=== PATIENT | male | born 1960 | race African-American/Black ===

== ENCOUNTER 2018-11-02 11:09 | Inpatient (IN) ==
[2018-11-02] MEDS ORDERED: PANTOPRAZOLE 40 MG VIAL IV STA (11:35)
[2018-11-02] MEDS ORDERED: HYDROmorphone 2 MG/1 ML VIAL IV STA (11:35)
[2018-11-02] MEDS ORDERED: ALUM/MAG/SIMETH/LIDO VISC 1:1 30 ML BOTTLE PO STA (11:35)
[2018-11-02] MEDS ORDERED: SODIUM CHLORIDE 0.9% 500 ML IV STA (11:35)
[2018-11-02] MEDS ORDERED: ONDANSETRON 4 MG/2 ML VIAL IV STA (11:35)
[2018-11-02 12:40] LABS: Basophils % 0.4 % (0.0-0.8); Eosinophils % 0.8 % (0.00-10.9); Hematocrit 39.2 VOL% (42.0-52.0); Hemoglobin 13.4 GM/DL (14.0-18.0); Immature Granulocytes % 0.2 %; Immature Granulocytes Absolute 0.01 #; Lymphocytes # 0.9 10*3/uL (1.4-4.0); Lymphocytes % 18.5 % (21.2-54.2); Mean Corpuscular HGB Conc 34.2 GM/DL (32-36); Mean Corpuscular Hemoglobin 33 PG (27-34); Mean Corpuscular Volume 95.6 FL (87-102); Mean Platelet Volume 9.6 FL (9.6-12.0); Monocytes # 0.4 10*3/uL (0.11-0.8); Monocytes % 7.3 % (1.7-12.7); Neutrophils # 3.7 10*3/uL (1.4-7.4); Neutrophils % 72.8 % (38.7-73.9); Platelet Count 108 T/CUMM (130-400); Red Cell Distribution Width 12.8 % (9.3-17.3); White Blood Count 5.1 T/CUMM (4-12)
[2018-11-02 12:57] LABS: Ammonia 21 UMOL/L (11-32)
[2018-11-02 13:00] LABS: Bilirubin,Total 3.1 MG/DL (0.2-1.0); Calcium 9.1 MG/DL (8.5-10.1); Lactic Acid 1.5 MMOL/L (0.4-2.0); Osmolality,Calculated 266.2 MOS/KG (273-304); Potassium 3.6 MMOL/L (3.5-5.1); Total Protein 8.2 G/DL (6.4-8.3)
[2018-11-02 13:44] LABS: Apearance,Urine CLEAR (Clear); Bilirubin,Urine Negative (Negative); Blood, Urine Negative (Negative); Glucose,Urine (UA) Negative (Negative); Hyaline Casts,Urine 1 /LPF (0-3); Ketones,Urine Negative (Negative); Mucus,Urine Occasional /LPF (Occasional); Nitrite,Urine Negative (Negative); Protein,Urine Negative; RBC,Urine 1 /HPF (0-4); Squamous Epithelial Cell,Urine Occasional /HPF (0-10); Urine Color Amber (Yellow); WBC,Urine 2 /HPF (0-6)
[2018-11-02 14:31] LABS: Barbiturates Screen,Urine Negative (Negative); Benzodiazepines Screen,Urine Negative (Negative); Cannabinoid Screen,Urine Positive (Negative); Opiate Screen,Urine Negative (Negative); Phencyclidine Screen,Urine Negative (Negative)
[2018-11-02] MEDS ORDERED: NICOTINE 21 MG/24 HR PATCH TRANSDERM PRN (14:49)
[2018-11-02] MEDS ORDERED: ONDANSETRON 4 MG/2 ML VIAL IV PRN (14:49)
[2018-11-02] MEDS: SODIUM CHLORIDE 0.9% 1,000 ML IV SCH (17:09)
[2018-11-02] MEDS: LORazepam 2 MG/1 ML VIAL IV PRN (19:03)
[2018-11-02] MEDS: LATANOPROST 0.005% OPH SOLN 2.5 ML BOTTLE BOTH EYES SCH ×2 (21:35→21:38)
[2018-11-02] MEDS: PANTOPRAZOLE 40 MG VIAL IV SCH (21:35)
[2018-11-02] MEDS: DOXAZOSIN 4 MG TABLET PO SCH ×2 (21:35→21:38)
[2018-11-02 23:32] LABS: Hepatitis A Ab IgM Result Negative (Negative); Hepatitis B Core IgM Quant < 0.05 Index; Hepatitis B Core IgM Result Negative (Negative); Hepatitis B Surface Ag Quant 0.18 Index; Hepatitis B Surface Ag Result Negative (Negative); Hepatitis C Virus Ab Quant 0.14 Index; Hepatitis C Virus Ab Result Negative (Negative)
[2018-11-03] MEDS: LORazepam 2 MG/1 ML VIAL IV PRN ×2 (00:24→21:24)
[2018-11-03 05:58] LABS: INR 1.1; PT Patient Result 11.8 SECS
[2018-11-03 06:01] LABS: Basophils % 0.6 % (0.0-0.8); Eosinophils # 0.1 10*3/uL (0.0-0.87); Eosinophils % 4.1 % (0.00-10.9); Hematocrit 37.1 VOL% (42.0-52.0); Hemoglobin 12.6 GM/DL (14.0-18.0); Immature Granulocytes % 0.3 %; Immature Granulocytes Absolute 0.01 #; Lymphocytes # 1.2 10*3/uL (1.4-4.0); Lymphocytes % 33.7 % (21.2-54.2); Mean Corpuscular Hemoglobin 33 PG (27-34); Mean Corpuscular Volume 96.1 FL (87-102); Mean Platelet Volume 9.9 FL (9.6-12.0); Monocytes # 0.4 10*3/uL (0.11-0.8); Monocytes % 10.3 % (1.7-12.7); Neutrophils # 1.7 10*3/uL (1.4-7.4); Platelet Count 100 T/CUMM (130-400); Red Blood Count 3.86 MC/CUMM (3.8-5.5); Red Cell Distribution Width 12.6 % (9.3-17.3); White Blood Count 3.4 T/CUMM (4-12)
[2018-11-03 06:19] LABS: Albumin 3.2 G/DL (3.4-5.0); Bilirubin,Total 3.3 MG/DL (0.2-1.0); Calcium 8.4 MG/DL (8.5-10.1); Osmolality,Calculated 270.8 MOS/KG (273-304); Potassium 3.7 MMOL/L (3.5-5.1); Risk Ratio 2.06; Thyroid Stimulating Hormone 2.52 uIU/ml (0.358-3.74); Total Protein 6.7 G/DL (6.4-8.3); VLDL CHOLESTEROL 12.8 MG/DL
[2018-11-03 08:55] LABS: Hematocrit 39.4 VOL% (42.0-52.0); Hemoglobin 13.3 GM/DL (14.0-18.0)
[2018-11-03] MEDS: PANTOPRAZOLE 40 MG VIAL IV SCH ×2 (08:58→21:24)
[2018-11-03] MEDS ORDERED: PROPOFOL 200 MG/20 ML VIAL IV ONE (09:00)
[2018-11-03] MEDS ORDERED: LIDOCAINE 100 MG/5 ML SYRINGE ONE (09:00)
[2018-11-03] MEDS: MULTIVITAMIN (CENTRUM) TABLET PO SCH (11:46)
[2018-11-03] MEDS: FOLIC ACID 1 MG TABLET PO SCH (11:46)
[2018-11-03] MEDS: LISINOPRIL 2.5 MG TABLET PO SCH (11:46)
[2018-11-03] MEDS: THIAMINE 100 MG TABLET PO SCH (11:46)
[2018-11-03] MEDS: hydroCHLOROthiazide 12.5 MG CAPSULE PO SCH (11:46)
[2018-11-03] MEDS: SODIUM CHLORIDE 0.9% 1,000 ML IV SCH (15:12)
[2018-11-03] MEDS: DOXAZOSIN 4 MG TABLET PO SCH (21:24)
[2018-11-03] MEDS: LATANOPROST 0.005% OPH SOLN 2.5 ML BOTTLE BOTH EYES SCH (22:09)
[2018-11-04] MEDS: SODIUM CHLORIDE 0.9% 1,000 ML IV SCH ×2 (04:23→15:56)
[2018-11-04 05:35] LABS: Basophils % 0.5 % (0.0-0.8); Eosinophils # 0.2 10*3/uL (0.0-0.87); Eosinophils % 5.5 % (0.00-10.9); Hemoglobin 12.4 GM/DL (14.0-18.0); Immature Granulocytes % 0.5 %; Immature Granulocytes Absolute 0.02 #; Lymphocytes # 1.3 10*3/uL (1.4-4.0); Lymphocytes % 31.5 % (21.2-54.2); Mean Corpuscular HGB Conc 33.5 GM/DL (32-36); Mean Corpuscular Hemoglobin 33 PG (27-34); Mean Corpuscular Volume 97.4 FL (87-102); Mean Platelet Volume 10.1 FL (9.6-12.0); Monocytes # 0.5 10*3/uL (0.11-0.8); Monocytes % 12.7 % (1.7-12.7); Neutrophils % 49.3 % (38.7-73.9); Platelet Count 100 T/CUMM (130-400); Red Cell Distribution Width 12.4 % (9.3-17.3)
[2018-11-04 05:42] LABS: Albumin 3.1 G/DL (3.4-5.0); Bilirubin,Direct 0.44 MG/DL (0.0-0.20); Bilirubin,Indirect 1.6 MG/DL (0.0-1.0); Total Protein 6.7 G/DL (6.4-8.3)
[2018-11-04 05:43] LABS: Bilirubin,Total 1.9 MG/DL (0.2-1.0); Calcium 8.2 MG/DL (8.5-10.1); Osmolality,Calculated 277.4 MOS/KG (273-304); Potassium 3.8 MMOL/L (3.5-5.1); Total Protein 6.7 G/DL (6.4-8.3)
[2018-11-04] MEDS: LISINOPRIL 2.5 MG TABLET PO SCH (09:24)
[2018-11-04] MEDS: FOLIC ACID 1 MG TABLET PO SCH (09:24)
[2018-11-04] MEDS: PANTOPRAZOLE 40 MG VIAL IV SCH ×2 (09:24→20:41)
[2018-11-04] MEDS: MULTIVITAMIN (CENTRUM) TABLET PO SCH (09:24)
[2018-11-04] MEDS: THIAMINE 100 MG TABLET PO SCH (09:24)
[2018-11-04] MEDS: hydroCHLOROthiazide 12.5 MG CAPSULE PO SCH (09:24)
[2018-11-04] MEDS ORDERED: chlordiazePOXIDE 25 MG CAPSULE PO PRN (11:19)
[2018-11-04] MEDS: LATANOPROST 0.005% OPH SOLN 2.5 ML BOTTLE BOTH EYES SCH (20:41)
[2018-11-04] MEDS: DOXAZOSIN 4 MG TABLET PO SCH (20:41)
[2018-11-04] MEDS: LORazepam 2 MG/1 ML VIAL IV PRN (20:41)
[2018-11-05 05:06] LABS: Basophils % 0.5 % (0.0-0.8); Eosinophils # 0.2 10*3/uL (0.0-0.87); Eosinophils % 4.5 % (0.00-10.9); Hematocrit 36.7 VOL% (42.0-52.0); Hemoglobin 12.2 GM/DL (14.0-18.0); Immature Granulocytes % 0.5 %; Immature Granulocytes Absolute 0.02 #; Lymphocytes # 1.5 10*3/uL (1.4-4.0); Lymphocytes % 39.5 % (21.2-54.2); Mean Corpuscular HGB Conc 33.2 GM/DL (32-36); Mean Corpuscular Hemoglobin 32 PG (27-34); Mean Corpuscular Volume 97.1 FL (87-102); Mean Platelet Volume 10.6 FL (9.6-12.0); Monocytes # 0.5 10*3/uL (0.11-0.8); Monocytes % 13.2 % (1.7-12.7); Neutrophils # 1.6 10*3/uL (1.4-7.4); Neutrophils % 41.8 % (38.7-73.9); Platelet Count 105 T/CUMM (130-400); Red Blood Count 3.78 MC/CUMM (3.8-5.5); White Blood Count 3.8 T/CUMM (4-12)
[2018-11-05 05:37] LABS: Calcium 8.5 MG/DL (8.5-10.1); Osmolality,Calculated 278.3 MOS/KG (273-304)
[2018-11-05 05:41] LABS: Albumin 3.1 G/DL (3.4-5.0); Bilirubin,Total 2.6 MG/DL (0.2-1.0); Calcium 8.6 MG/DL (8.5-10.1); Osmolality,Calculated 276.4 MOS/KG (273-304); Total Protein 6.6 G/DL (6.4-8.3)
[2018-11-05] MEDS: SODIUM CHLORIDE 0.9% 1,000 ML IV SCH ×2 (06:37→21:31)
[2018-11-05] MEDS: PANTOPRAZOLE 40 MG VIAL IV SCH ×2 (09:36→21:32)
[2018-11-05] MEDS: THIAMINE 100 MG TABLET PO SCH (09:37)
[2018-11-05] MEDS: hydroCHLOROthiazide 12.5 MG CAPSULE PO SCH (09:37)
[2018-11-05] MEDS: MULTIVITAMIN (CENTRUM) TABLET PO SCH (09:37)
[2018-11-05] MEDS: FOLIC ACID 1 MG TABLET PO SCH (09:37)
[2018-11-05] MEDS: LISINOPRIL 2.5 MG TABLET PO SCH (09:37)
[2018-11-05] MEDS ORDERED: BISACODYL 5 MG TABLET PO ONE (12:30)
[2018-11-05] MEDS ORDERED: POLYETHYLENE GLYCOL POWDER 255 GM BOTTLE PO ONE (18:00)
[2018-11-05] MEDS: DOXAZOSIN 4 MG TABLET PO SCH (21:33)
[2018-11-05] MEDS: LATANOPROST 0.005% OPH SOLN 2.5 ML BOTTLE BOTH EYES SCH (21:35)
[2018-11-06 05:33] LABS: Basophils % 1.1 % (0.0-0.8); Eosinophils # 0.1 10*3/uL (0.0-0.87); Eosinophils % 3.6 % (0.00-10.9); Hematocrit 36.1 VOL% (42.0-52.0); Hemoglobin 12.1 GM/DL (14.0-18.0); Immature Granulocytes % 0.3 %; Immature Granulocytes Absolute 0.01 #; Lymphocytes # 1.6 10*3/uL (1.4-4.0); Lymphocytes % 43.9 % (21.2-54.2); Mean Corpuscular HGB Conc 33.5 GM/DL (32-36); Mean Corpuscular Hemoglobin 32 PG (27-34); Mean Platelet Volume 10.6 FL (9.6-12.0); Monocytes # 0.4 10*3/uL (0.11-0.8); Monocytes % 10.2 % (1.7-12.7); Neutrophils # 1.5 10*3/uL (1.4-7.4); Neutrophils % 40.9 % (38.7-73.9); Platelet Count 105 T/CUMM (130-400); Red Blood Count 3.76 MC/CUMM (3.8-5.5); White Blood Count 3.6 T/CUMM (4-12)
[2018-11-06 06:14] LABS: Calcium 8.8 MG/DL (8.5-10.1); Osmolality,Calculated 279.1 MOS/KG (273-304); Potassium 3.5 MMOL/L (3.5-5.1)
[2018-11-06] MEDS ORDERED: SODIUM PHOSPHATE ENEMA 133 ML BOTTLE RECTAL ONE (08:30)
[2018-11-06] MEDS ORDERED: LIDOCAINE 100 MG/5 ML SYRINGE ONE (09:00)
[2018-11-06] MEDS ORDERED: PROPOFOL 200 MG/20 ML VIAL IV ONE (09:00)
[2018-11-06] MEDS: hydroCHLOROthiazide 12.5 MG CAPSULE PO SCH (09:34)
[2018-11-06] MEDS: LISINOPRIL 2.5 MG TABLET PO SCH (09:34)
[2018-11-06 12:37] LABS: PT Patient Result 10.7 SECS
[2018-11-06] MEDS: MULTIVITAMIN (CENTRUM) TABLET PO SCH (13:47)
[2018-11-06] MEDS: FOLIC ACID 1 MG TABLET PO SCH (13:48)
[2018-11-06] MEDS: THIAMINE 100 MG TABLET PO SCH (13:48)
[2018-11-06] MEDS: PANTOPRAZOLE 40 MG VIAL IV SCH ×2 (13:48→20:57)
[2018-11-06] MEDS: LATANOPROST 0.005% OPH SOLN 2.5 ML BOTTLE BOTH EYES SCH (20:57)
[2018-11-06] MEDS: DOXAZOSIN 4 MG TABLET PO SCH (20:57)
[2018-11-07 05:46] LABS: Basophils % 0.5 % (0.0-0.8); Eosinophils # 0.2 10*3/uL (0.0-0.87); Eosinophils % 4.6 % (0.00-10.9); Hematocrit 35.4 VOL% (42.0-52.0); Hemoglobin 11.5 GM/DL (14.0-18.0); Immature Granulocytes % 0.5 %; Immature Granulocytes Absolute 0.02 #; Lymphocytes # 1.4 10*3/uL (1.4-4.0); Lymphocytes % 32.6 % (21.2-54.2); Mean Corpuscular HGB Conc 32.5 GM/DL (32-36); Mean Corpuscular Hemoglobin 32 PG (27-34); Mean Corpuscular Volume 97.8 FL (87-102); Mean Platelet Volume 10.4 FL (9.6-12.0); Monocytes # 0.6 10*3/uL (0.11-0.8); Monocytes % 14.1 % (1.7-12.7); Neutrophils % 47.7 % (38.7-73.9); Platelet Count 117 T/CUMM (130-400); Red Blood Count 3.62 MC/CUMM (3.8-5.5); Red Cell Distribution Width 12.2 % (9.3-17.3); White Blood Count 4.2 T/CUMM (4-12)
[2018-11-07 06:22] LABS: Calcium 8.6 MG/DL (8.5-10.1); Osmolality,Calculated 282.1 MOS/KG (273-304); Potassium 3.6 MMOL/L (3.5-5.1)
[2018-11-07] MEDS: THIAMINE 100 MG TABLET PO SCH (12:28)
[2018-11-07] MEDS: PANTOPRAZOLE 40 MG VIAL IV SCH (12:28)
[2018-11-07] MEDS: MULTIVITAMIN (CENTRUM) TABLET PO SCH (12:28)
[2018-11-07] MEDS: hydroCHLOROthiazide 12.5 MG CAPSULE PO SCH (12:28)
[2018-11-07] MEDS: FOLIC ACID 1 MG TABLET PO SCH (12:28)
[2018-11-07] MEDS: LISINOPRIL 2.5 MG TABLET PO SCH (12:28)
[2018-11-07 15:29] VITALS: BP 134/74
== END 2018-11-07 17:46 | disposition home or self-care (01) | DRG 813 ==
LOC: N.ED 11:09 → N.EDINP 13:49 → SUATTDRO 13:49 → N.2E 16:03
PROVIDERS: ADMIT Internal Medicine; ATTEND Internal Medicine Nephrology